=== PATIENT | male | born 1985 | race Caucasian/White ===

== ENCOUNTER 2017-02-22 09:18 | Emergency (ER) | payer OTHER ==
[2017-02-22] MEDS ORDERED: HALOPERIDOL LACT 5 MG/ML INJ IM ONE (09:31)
[2017-02-22] MEDS ORDERED: MIDAZOLAM 2 MG/2 ML VIAL IM ONE (09:32)
[2017-02-22] MEDS ORDERED: HALOPERIDOL LACT 5 MG/ML INJ ONE (09:38)
[2017-02-22 09:56] VITALS: RESP 18
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
[2017-02-22 10:54] LABS: ADD DIFF? NO; ADD MORPH? NO; ADD SCAN? NO; ATYPICAL LYMPHOCYTE FLAG 20 (0-99); FRAGMENT RBC FLAG 0 (0-99); HEMATOCRIT 40.6 % (40.0-51.0); HEMOGLOBIN 14.2 g/dL (13.7-17.5); LEFT SHIFT FLG 0 (0-99); LIPEMIA HEMOLYSIS FLAG 90 (0-99); MEAN CELL HEMOGLOBIN 30.5 pg (27.9-34.1); MEAN CELL VOLUME 87.3 fL (81.5-99.8); MEAN PLATELET VOLUME 11.2 fL (8.7-11.7); PLATELET CLUMPS FLAG 10 (0-99); PLATELET COUNT 167 10^3/uL (150-400); RED BLOOD CELL COUNT 4.65 10^6/uL (4.40-6.38); RED CELL DISTRIBUTION WIDTH 12.2 % (11.5-15.2)
[2017-02-22 11:05] LABS: ANION GAP 13 mEq/L (8-16); CARBON DIOXIDE 24 mEq/l (22-31); CHLORIDE 109 mEq/L (97-110); CREATININE 0.7 mg/dL (0.7-1.3); ETHANOL SERUM 15 mg/dL (0-10); GLOMERULAR FILTRATION RATE > 60; GLUCOSE 79 mg/dL (70-100); POTASSIUM 3.8 mEq/L (3.5-5.2); SODIUM 146 mEq/L (134-144)
[2017-02-22 19:58] VITALS: BP 126/78; PULSE 64; TEMP 98.2; O2SAT 96
== END 2017-02-22 19:58 | disposition home or self-care (01) ==
DX: F10.20 Alcohol dependence, uncomplicated (principal)
CPT/HCPCS: 96372; 99285; J2250; 80305; G0480